=== PATIENT | female | born 1975 | race African-American/Black ===

== ENCOUNTER 2017-09-28 15:46 | Inpatient (IN) | payer OTHER ==
[~2017-09-28] VITALS: Ht 170.2 cm; Wt 93.9 kg
[2017-09-28] MEDS ORDERED: PNV1TABL76 PO (16:06)
[2017-09-28] MEDS ORDERED: DINOPROSTONE 10MG VAGINAL INSERT VG ONE (16:15)
[2017-09-28] MEDS ORDERED: METHYLERGONOVINE MALEATE 0.2 MG/ML IM PRN (16:15)
[2017-09-28] MEDS ORDERED: MISOPROSTOL 100MCG TABLET VG SCH (16:15)
[2017-09-28] MEDS ORDERED: CARBOPROST TROMETHAMINE 250 MCG/ML AMPUL IM PRN (16:15)
[2017-09-28] MEDS ORDERED: BUTORPHANOL TARTRATE 2 MG/ML VIAL IM PRN (16:15)
[2017-09-28] MEDS ORDERED: NALOXONE HCL 0.4 MG/ML 1ML VIAL IM PRN (16:15)
[2017-09-28] MEDS ORDERED: LIDOCAINE HCL 1% 20ML VIAL (Pyxis) INJ INFIL SCH (16:15)
[2017-09-28] MEDS ORDERED: LABETALOL 5MG/ML SYR 20 MG/4 ML SYRINGE IV NR (17:00)
[2017-09-28] MEDS: LACTATED RINGERS 1,000 ML IV SCH ×2 (17:00→19:35)
[2017-09-28 17:15] LABS: CLARITY URINE CLOUDY (CLEAR); COLOR URINE YELLOW (YELLOW); KETONES URINE NEGATIVE (NEGATIVE); LEUKOCYTE ESTERASE URINE 1+ (NEGATIVE); NITRITE URINE NEGATIVE (NEGATIVE); OCCULT BLOOD URINE NEGATIVE (NEGATIVE); PROTEIN URINE NEGATIVE (NEGATIVE); SPECIFIC GRAVITY URINE 1.014 (1.005-1.030)
[2017-09-28 17:17] LABS: BASOPHILS % 0.9 % (0.0-2.0); EOSINOPHILS % 0.5 % (0.0-5.0); HEMATOCRIT. 39.1 % (36.0-48.0); HEMOGLOBIN. 13.4 g/dL (12.0-16.0); LYMPHOCYTES % 32.1 % (20.0-50.0); MEAN CORPUSCULAR HEMOGLOBIN 33.2 pg (28.0-32.0); MEAN CORPUSCULAR VOLUME 96.5 fL (81.0-99.0); MEAN PLATELET VOLUME 9.7 fl (7.4-10.4); NEUTROPHILS % 57.5 % (40.0-76.0); PLATELET 199 x1000/uL (130-400); RED BLOOD CELL COUNT 4.05 mill/uL (4.2-5.4); RED CELL DISTRIBUTION WIDTH 14.3 % (11.6-14.6)
[2017-09-28 17:25] LABS: INR 0.9; PARTIAL THROMBOPLASTIN TIME 25.2 sec (23.4-31.0); PROTHROMBIN TIME 9.8 sec (9.4-11.6)
[2017-09-28 17:29] LABS: *AMPHETAMINES SCREEN URINE NEGATIVE (NEGATIVE); *BARBITURATES SCREEN URINE NEGATIVE (NEGATIVE); *BENZODIAZEPINES SCREEN URINE NEGATIVE (NEGATIVE); *COCAINE SCREEN URINE NEGATIVE (NEGATIVE); CANNABINOID URINE SCREEN NEGATIVE (NEGATIVE); METHADONE URINE SCREEN NEGATIVE (NEGATIVE); OPIATES URINE SCREEN NEGATIVE (NEGATIVE); PHENCYCLIDINE URINE SCREEN NEGATIVE (NEGATIVE)
[2017-09-28] MEDS ORDERED: LABETALOL 5MG/ML SYR 20 MG/4 ML SYRINGE IV SCH (17:30)
[2017-09-28] MEDS: MISOPROSTOL 100MCG TABLET VG PRN (17:32)
[2017-09-28 18:22] LABS: HEPATITIS B SURFACE ANTIGEN NEGATIVE; RUBELLA IGG 5.9 IU/mL (4.99-10)
[2017-09-28] MEDS ORDERED: MAGNESIUM 4 G PREMIX 100 ML IV NR (18:30)
[2017-09-28] MEDS: MAGNESIUM 20 G PREMIX (L & D) 500 ML IV SCH (18:59)
[2017-09-28] MEDS: LABETALOL HCL 300MG TABLET PO SCH (19:12)
[2017-09-28] MEDS ORDERED: LABETALOL 5MG/ML SYR 20 MG/4 ML SYRINGE IV PRN (21:00)
[2017-09-28 22:33] LABS: CHLORIDE 107 mEq/L (98-107)
[2017-09-28 22:42] LABS: CARBON DIOXIDE 20 mEq/L (21-32)
[2017-09-29] MEDS: MISOPROSTOL 100MCG TABLET VG PRN (01:25)
[2017-09-29] MEDS ORDERED: BUPIVACAINE HCL/PF 0.25% (2.5MG/ML) 10ML ONE (03:51)
[2017-09-29] MEDS ORDERED: FENTANYL CITRATE/PF 50MCG/ML 5ML VIAL ONE (03:51)
[2017-09-29] MEDS ORDERED: BUPIVACAINE HCL/NS/PF EPIDURAL 100 ML EP ONE (03:51)
[2017-09-29] MEDS ORDERED: BUPIVACAINE HCL/NS/PF EPIDURAL 100 ML EP SCH (04:15)
[2017-09-29] MEDS: DEXT 5%/LR + PITOCIN 20UNITS/L 1,000 ML IV SCH ×2 (05:12→08:34)
[2017-09-29] MEDS: MAGNESIUM 20 G PREMIX (L & D) 500 ML IV SCH (05:33)
[2017-09-29] MEDS ORDERED: LIDOCAINE HCL/PF 2% 20MG/ML 5 ML/VIAL ONE (06:36)
[2017-09-29] MEDS ORDERED: ACETAMINOPHEN WITH CODEINE 300/30MG TABLET PO PRN (09:00)
[2017-09-29] MEDS ORDERED: LANOLIN OINT 0.25 GM TUBE TOP PRN (09:00)
[2017-09-29] MEDS ORDERED: LABETALOL HCL 300MG TABLET PO SCH (09:00)
[2017-09-29] MEDS ORDERED: MAGNESIUM 20 G PREMIX (L & D) 500 ML IV SCH (09:30)
[2017-09-29 09:50] VITALS: BP 139/91
[2017-09-29 11:00] VITALS: BP 159/91
[2017-09-29] MEDS: LABETALOL HCL 300MG TABLET PO SCH (13:30)
[2017-09-29] MEDS: IBUPROFEN 400MG TABLET PO PRN (13:31)
[2017-09-29 16:00] VITALS: BP 124/77
[2017-09-29 20:00] VITALS: BP 124/76
[2017-09-29] MEDS ORDERED: DOCUSATE SODIUM 100MG CAPSULE PO SCH (21:00)
[2017-09-30] MEDS: LABETALOL HCL 300MG TABLET PO SCH ×3 (01:36→21:41)
[2017-09-30] MEDS: DEXT 5%/LR + PITOCIN 20UNITS/L 1,000 ML IV SCH (01:50)
[2017-09-30] MEDS: IBUPROFEN 400MG TABLET PO PRN (06:28)
[2017-09-30 06:43] VITALS: BP 124/95
[2017-09-30 08:08] VITALS: BP 136/81
[2017-09-30 10:25] LABS: BASOPHILS % 0.6 % (0.0-2.0); EOSINOPHILS % 1.2 % (0.0-5.0); HEMATOCRIT. 36.3 % (36.0-48.0); HEMOGLOBIN. 12.6 g/dL (12.0-16.0); LYMPHOCYTES % 21.7 % (20.0-50.0); MEAN CORPUSCULAR HEMOGLOBIN 33.4 pg (28.0-32.0); MEAN CORPUSCULAR VOLUME 96.7 fL (81.0-99.0); MEAN PLATELET VOLUME 9.6 fl (7.4-10.4); MONOCYTES % 7.8 % (2.0-8.0); NEUTROPHILS % 68.7 % (40.0-76.0); PLATELET 172 x1000/uL (130-400); RED BLOOD CELL COUNT 3.76 mill/uL (4.2-5.4); RED CELL DISTRIBUTION WIDTH 14.5 % (11.6-14.6)
[2017-09-30] MEDS ORDERED: DOCU-138 PO (15:33)
[2017-09-30] MEDS ORDERED: IBUP-2030 PO (15:33)
[2017-09-30 16:13] VITALS: BP 145/90
[2017-09-30 20:00] VITALS: BP 147/88
[2017-09-30 21:40] VITALS: BP 156/93
[2017-10-01 07:30] VITALS: BP 170/99
[2017-10-01 08:00] VITALS: BP 167/99
[2017-10-01] MEDS: LABETALOL HCL 300MG TABLET PO SCH (08:13)
== END 2017-10-01 09:45 | disposition home or self-care (01) | DRG 775 ==
LOC: L&D 15:46 → OBSVTOIN 15:46 → 7EST PP/OB 09-29 09:30
PROVIDERS: ADMIT Obstetrics & Gynecology Obstetrics; ATTEND Obstetrics & Gynecology Obstetrics
PROC: 0HQ9XZZ Repair Perineum Skin, External Approach (ICD-10-PCS; 2017-09-29)
PROC: 3E0S3BZ Introduction of Anesthetic Agent into Epidural Space, Percutaneous Approach (ICD-10-PCS; 2017-09-29)
PROC: 00HU33Z Insertion of Infusion Device into Spinal Canal, Percutaneous Approach (ICD-10-PCS; 2017-09-29)
PROC: 10E0XZZ Delivery of Products of Conception, External Approach (ICD-10-PCS; principal; 2017-09-29 07:13)
DX: O41.03X0 Oligohydramnios, third trimester, not applicable or unspecified (principal); O09.523 Supervision of elderly multigravida, third trimester; O13.4 Gestational [pregnancy-induced] hypertension without significant proteinuria, complicating childbirth; Z37.0 Single live birth; Z3A.40 40 weeks gestation of pregnancy; Z82.49 Family history of ischemic heart disease and other diseases of the circulatory system; Z83.3 Family history of diabetes mellitus; Z79.899 Other long term (current) drug therapy; O70.0 First degree perineal laceration during delivery
CPT/HCPCS: 36415; 80053; 80305; 81001; 83735; 84550; 85025; 85610; 85730; 86592; 86703; 86762; 86850; 86900; 87340; J0595; J2310; J2590; J3010; J3475; J3490; J7120; A4315

== ENCOUNTER 2017-12-27 08:44 | Day surgery (SDC) | payer OTHER ==
[~2017-12-27] VITALS: Ht 170.2 cm; Wt 83.9 kg
[~2017-12-27 08:44] MED LIST: DOCU-138 PO; IBUP-2030 PO; LACTATED RINGERS 1,000 ML IV ONE
[2017-12-27] MEDS ORDERED: BUPIVACAINE HCL 0.5% (5MG/ML) 50ML ONE (09:11)
[2017-12-27] MEDS ORDERED: SKIN ADHESIVE 0.7 GM EA TOP ONE (09:11)
[2017-12-27 09:34] LABS: BASOPHILS % 0.9 % (0.0-2.0); EOSINOPHILS % 1.3 % (0.0-5.0); HEMATOCRIT. 42.5 % (36.0-48.0); HEMOGLOBIN. 14.8 g/dL (12.0-16.0); LYMPHOCYTES % 38.4 % (20.0-50.0); MEAN CORPUSCULAR HEMOGLOBIN 34.3 pg (28.0-32.0); MEAN CORPUSCULAR VOLUME 98.2 fL (81.0-99.0); MEAN PLATELET VOLUME 7.8 fl (7.4-10.4); MONOCYTES % 6.4 % (2.0-8.0); PLATELET 278 x1000/uL (130-400); RED BLOOD CELL COUNT 4.32 mill/uL (4.2-5.4)
[2017-12-27 09:43] LABS: PARTIAL THROMBOPLASTIN TIME 24.6 sec (23.4-31.0); PROTHROMBIN TIME 10.7 sec (9.4-11.6)
[2017-12-27 10:01] LABS: CLARITY URINE CLOUDY (CLEAR); COLOR URINE YELLOW (YELLOW); KETONES URINE NEGATIVE (NEGATIVE); LEUKOCYTE ESTERASE URINE 3+ (NEGATIVE); NITRITE URINE NEGATIVE (NEGATIVE); OCCULT BLOOD URINE NEGATIVE (NEGATIVE); PH URINE 5.5 (4.5-8.0); PROTEIN URINE NEGATIVE (NEGATIVE); SPECIFIC GRAVITY URINE 1.019 (1.005-1.030)
[2017-12-27 10:04] LABS: UCG SCREEN NEGATIVE
[2017-12-27] MEDS ORDERED: MIDAZOLAM HCL 2 MG/2 ML VIAL ONE (10:16)
[2017-12-27] MEDS ORDERED: SUCCINYLCHOLINE CHLORIDE 200MG/10ML VIAL IV ONE (10:16)
[2017-12-27] MEDS ORDERED: FENTANYL CITRATE/PF 50MCG/ML 2ML VIAL ONE ×2 (10:16→10:32)
[2017-12-27] MEDS ORDERED: ROCURONIUM BROMIDE 10MG/ML VIAL 5ML IV ONE (10:16)
[2017-12-27] MEDS ORDERED: LIDOCAINE HCL/PF 1% 10 MG/ML 5ML VIAL ONE (10:16)
[2017-12-27] MEDS ORDERED: PROPOFOL 200MG/20ML VIAL IV ONE (10:16)
[2017-12-27] MEDS ORDERED: GLYCOPYRROLATE 0.2 MG/ML 2ML VIAL ONE ×2 (10:16→11:54)
[2017-12-27] MEDS ORDERED: ONDANSETRON HCL 4MG/2ML VIAL ONE ×2 (10:17→11:11)
[2017-12-27] MEDS ORDERED: METOCLOPRAMIDE HCL 10MG/2ML VIAL ONE (10:17)
[2017-12-27] MEDS ORDERED: CEFAZOLIN SODIUM 1000MG/VIAL ONE (10:39)
[2017-12-27] MEDS ORDERED: ESMOLOL HCL 10MG/ML 10ML VIAL IV ONE (11:10)
[2017-12-27] MEDS ORDERED: DEXAMETHASONE 4MG/ML 1ML VIAL ONE (11:10)
[2017-12-27] MEDS ORDERED: KETOROLAC 30MG/ML VIAL ONE (11:11)
[2017-12-27] MEDS ORDERED: NEOSTIGMINE METHYLSULFATE 1MG/ML 10 ML VIAL ONE (11:54)
[2017-12-27] MEDS ORDERED: HYDROMORPHONE HCL/PF 2MG/ML (OR) ONE (12:02)
[2017-12-27] MEDS ORDERED: SODIUM CHLORIDE 0.9% 1,000 ML IV ONE (12:52)
[2017-12-27] MEDS ORDERED: MEPERIDINE HCL/PF 25MG/ML CPJ IV PRN (13:00)
[2017-12-27] MEDS ORDERED: HYDROMORPHONE HCL/PF 2MG/ML CPJ IV PRN (13:00)
[2017-12-27] MEDS ORDERED: ONDANSETRON HCL 4MG/2ML VIAL IV PRN (13:00)
[2017-12-27] MEDS ORDERED: IBUP-2030 PO (14:11)
== END 2017-12-27 14:25 | disposition home or self-care (01) ==
LOC: OR 08:44
PROVIDERS: ATTEND Obstetrics & Gynecology Obstetrics
DX: Z30.2 Encounter for sterilization (principal); I10 Essential (primary) hypertension; Z86.2 Personal history of diseases of the blood and blood-forming organs and certain disorders involving the immune mechanism; E66.3 Overweight
CPT/HCPCS: 36415; 58661; 81003; 81025; 85025; 85610; 85730; 87077; 87086; 88302; C1725; G0168; J0330; J0690; J1100; J1170; J1885; J2250; J2405; J2710; J2765; J3010; J3490; J7120; J2704